=== PATIENT | female | born 1945 | race Caucasian/White ===

== ENCOUNTER → 2024-02-17 10:53 | Outpatient (REF) | payer MEDICARE, OTHER, SELFPAY ==
[2024-02-17 11:42] LABS: Hematocrit 40.9 % (37.0-47.0); Hemoglobin 13.7 g/dL (12.0-16.0); Mean Corp Hgb Conc. 33.5 g/dL (33.0-37.0); Mean Corpuscular Hgb 31.5 pg (27.0-31.0); Mean Platelet Volume 9.5 fL (7.4-10.4); Platelet Count 238 10^3/uL (130-400); Red Blood Cell Count 4.35 10^6/uL (4.20-5.40); Red Cell Dist. Width 13.1 % (11.5-14.5); White Blood Cell Count 5.8 10^3/uL (4.8-10.8)
[2024-02-17 12:11] LABS: Blood Urea Nitrogen 15 mg/dl (7-17); Calcium 9.4 mg/dl (8.4-10.2); Carbon Dioxide 29 mmol/L (22-30); Chloride 96 mmol/L (98-107); Glucose 100 mg/dl (70-99); Potassium 4.6 mmol/L (3.5-5.1); Sodium 135 mmol/L (135-145); eGFR > 60.00
== END ==
LOC: SDSPAT 10:53
PROVIDERS: ATTENDING PHYSICIAN Student in an Organized Health Care Education/Training Program; FAMILY PHYSICIAN Family Medicine
DX: Z01.818 Encounter for other preprocedural examination (principal)
CPT/HCPCS: 36415; 80048; 85027; 93005

== ENCOUNTER 2024-03-02 06:25 | Day surgery (SDC) | payer MEDICARE, OTHER, SELFPAY ==
[2024-02-17 13:48] VITALS: BMI 27.5
[2024-03-02] VITALS (17 sets, daily range): BP systolic 118–149; BP diastolic 53–83; BMI 27.5
[2024-03-02] MEDS: NORMOSOL-R/PLASMALYTE-A 1000 IV ×2 (07:25→15:55)
[2024-03-02] MEDS: TYLENOL 1000 MG PO (07:32)
[2024-03-02] MEDS: CELEBREX 200 MG PO (07:32)
--- NOTE | 2024-03-02 10:00 | VNURNOTE ---
Home Health Liaison spoke with patient's spouse to discuss [facility] nurse/therapy, visits, schedule and homebound status. He is agreeable and understands that visits at home will be 2-3 x per week to assess and teach medical management. [facility] contact
information provided. Spouse is aware that [facility] will contact them for start of care in 1-2 days after discharge from .
[facility] referral completed in [facility].
--- NOTE | 2024-03-02 11:29 | W.PN.SURGUPD ---
Surgical Update
Surgical Update
78 yo F now s/p R subtalar joint arthrodesis
-Multimodal analgesia, received pre-operative nerve block
-NWB to RLE in posterior splint
-PT/OT, will continue PT/OT at home
-Continue ancef 24 hours inpatient
-Anticipate DC to home 03/03
[2024-03-02] MEDS: HEPARIN 5000 UNITS SC (15:57)
[2024-03-02] MEDS: COZAAR 25 MG PO (16:49)
[2024-03-02] MEDS: LEXAPRO 10 MG PO (16:49)
[2024-03-02] MEDS: LOPRESSOR 25 MG PO (20:04)
--- NOTE | 2024-03-02 21:07 | HPS.HSE ---
Family Physician
-
Family Physician: SULEMAN SCOTT, DO
Chief Complaint
-
right foot pain
History of Present Illness
78-year-old female past medical history of hypertension, anxiety/depression, presenting with right foot arch pain for the past few years gradually getting worse. She underwent right subtalar joint arthrodesis today.
She denies any complaints.
Medical History
Past Medical History
Past Medical History: Reports Other ( hypertension, anxiety/depression)
Past Surgical History: Reports None
Social History
Tobacco: Non-smoker
Alcohol: Daily (1 glass )
Drug: None
Family History
Family History: Not pertinent
Allergies / Home Medications
Allergies reflects when Allergies were last updated in [facility].
Home Medications with original date entered in [facility]
Allergy/Medication List:
Allergies
Allergy/AdvReac Type Severity Reaction Status Date / Time
ciprofloxacin Allergy Rash Verified 03/02/24 07:23
codeine Allergy nausea/vomi Verified 03/02/24 07:23
ting
levofloxacin Allergy Rash Verified 03/02/24 07:23
pollen extracts Allergy seasonal Verified 03/02/24 07:23
allergies
Home Medications
Theracran One 1 cap PO DAILY 02/24/24
acetaminophen 500 mg tablet 1,000 mg PO Q6H PRN pain 02/24/24
escitalopram oxalate 10 mg tablet (Lexapro) 10 mg PO .AFTERNOON 02/24/24
losartan 25 mg tablet 25 mg PO .AFTER LUNCH 02/24/24
metoprolol tartrate 25 mg tablet 25 mg PO BID 02/24/24
psyllium 1 packet PO Q48H 02/24/24
zolpidem 10 mg tablet 10 mg PO HS 02/24/24
Review of Systems
-
History Source: Patient
A 12 point ROS was completed and negative except as noted: Yes
Constitutional: Reports No Symptoms
EENT: Reports No Symptoms
Respiratory: Reports No Symptoms
Cardiac: Reports No Symptoms
Abdomen/GI: Reports No Symptoms
: Reports No Symptoms
Musculoskeletal: Reports No Symptoms
Skin: Reports No Symptoms
Neurological: Reports No Symptoms
Endocrine: Reports No Symptoms
Hematologic/Lymphatic: Reports No Symptoms
Psych: Reports No Symptoms
Physical Exam
Vital Signs
Vital Signs
Temp Pulse Resp BP Pulse Ox
97.5 F 86 16 132/70 93
03/02/24 19:30 03/02/24 20:04 03/02/24 19:30 03/02/24 20:04 03/02/24 19:30
Physical Exam
General: Well Developed, Well Nourished and No Apparent Distress
HEENT: NormoCephalic, Moist mucous membranes and Atraumatic
Respiratory: Clear
Cardiac: S1/S2 and Regular Rhythm; No Murmur or Rub
GI: Soft, Non Tender, Non Distended and Normal Bowel Sounds; No Organomegaly
Rectal: Deferred by Provider
Musculoskeletal: No Clubbing, No Cyanosis and No Edema
Skin: No Rash
Neuro: Nonfocal/grossly intact
Data Reviewed
-
Lab Data: Labs Reviewed by me
Old Records: Reviewed
Impression/Plan
-
IMPRESSION:
PLAN:
# Right posterior tibial tendon dysfunction status post right subtalar joint arthrodesis
-Nonweightbearing of right lower extremity in posterior splint, PT/OT,
-Ancef for 24 hours
-Pain control with Tylenol, ibuprofen, oxycodone,
-Can likely be discharged tomorrow
-PT/OT
Essential hypertension
-Continue losartan, metoprolol
Anxiety/depression
-Continue Lexapro
Full code
DVT prophylaxis�heparin, SCDs,
Regular diet
[2024-03-02] MEDS: ANCEF 5 IV (21:37)
[2024-03-02] MEDS: AMBIEN 10 MG PO (21:37)
[2024-03-03] MEDS: HEPARIN 5000 UNITS SC ×3 (01:00→16:52)
[2024-03-03 05:35] LABS: Hemoglobin 12.2 g/dL (12.0-16.0); Mean Corp Hgb Conc. 34.9 g/dL (33.0-37.0); Mean Corpuscular Volume 89.1 fL (81.0-99.0); Mean Platelet Volume 10.5 fL (7.4-10.4); Platelet Count 220 10^3/uL (130-400); Red Blood Cell Count 3.93 10^6/uL (4.20-5.40); Red Cell Dist. Width 13.2 % (11.5-14.5)
[2024-03-03 05:55] LABS: Blood Urea Nitrogen 14 mg/dl (7-17); Calcium 8.3 mg/dl (8.4-10.2); Carbon Dioxide 23 mmol/L (22-30); Chloride 101 mmol/L (98-107); Estimated Creatinine Clearance 60 ml/min; Glucose 108 mg/dl (70-99); Potassium 4.2 mmol/L (3.5-5.1); Sodium 134 mmol/L (135-145); eGFR > 60.00
[2024-03-03] MEDS: ANCEF 5 IV ×2 (06:21→13:00)
[2024-03-03 07:02] VITALS: BP 151/72
[2024-03-03] MEDS: LOPRESSOR 25 MG PO (07:43)
[2024-03-03] MEDS: MOTRIN 600 MG PO ×2 (09:20→16:51)
[2024-03-03 10:55] VITALS: BP 146/64
[2024-03-03] MEDS: NORMOSOL-R/PLASMALYTE-A IV (11:05)
--- NOTE | 2024-03-03 11:21 | CM ---
Met with pt at bedside
Pt reports [facility]; no steps to enter, FF set-up
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
DME - rolling walker, commode, raised toilet seat
SNF - no past hx
HH - has had [place] in past
Has ride at discharge
PCP - Lauri Trivedi
Pharm - [facility]
PT/OT - recs - HH
Discussed with pt - agreeable to HH. Has no preference to agency
TT sent to [facility]ia[facility] for HH needs
Plan - anticipate home with [facility]
[2024-03-03 12:06] VITALS: BP 162/82; PULSE 60; PULSE 61; O2SAT 96
--- NOTE | 2024-03-03 12:30 | W.PN.SURGUPD ---
Surgical Update
Surgical Update
78 yo F s/p R subtalar joint arthrodesis
-Patient seen and evaluated at bedside
-Toe pinks and well perfused, splint C/D/I
-Pain is well controlled
-Anticipate DC home pending PT/OT
-Strict NWB to RLE
-Home pain medications ordered
[2024-03-03] MEDS: LEXAPRO 10 MG PO (13:00)
[2024-03-03 14:55] VITALS: BP 143/63
--- NOTE | 2024-03-03 15:47 | PTCARENOTE ---
Patient and family anxiously awaiting discharge. Family reports oxycodone was called into patient's pharmacy, but patient will not take oxycodone d/t side effects, requesting prescription for tramadol and zofran. Dr. Figueroa updated.
[2024-03-03] MEDS: COZAAR 25 MG PO (16:52)
--- NOTE | 2024-03-03 17:37 | W.DS.TRANS ---
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
-
Discharge Instructions:
Sleep Apnea Risk Low
Discharge Diagnosis/Procedures R subtalar joint arthrodesis
Diet Regular
Activity Do not bear weight R leg
Bathing Restrictions None
Other Services VN
Instructions:
Stand-Alone Forms:
Changes to Home Medications: No
Discharge Medications:
DC Medications w/original date entered in [facility]
Theracran One 1 cap PO DAILY 02/24/24
acetaminophen 500 mg tablet 1,000 mg PO Q6H PRN pain 02/24/24
escitalopram oxalate 10 mg tablet (Lexapro) 10 mg PO .AFTERNOON 02/24/24
losartan 25 mg tablet 25 mg PO .AFTER LUNCH 02/24/24
metoprolol tartrate 25 mg tablet 25 mg PO BID 02/24/24
psyllium 1 packet PO Q48H 02/24/24
zolpidem 10 mg tablet 10 mg PO HS 02/24/24
acetaminophen 325 mg tablet 650 mg (2 x 325 mg) PO Q4HPRN PRN mild pain #100 tabs 03/03/24
ibuprofen 200 mg tablet (Motrin IB) 600 mg (3 x 200 mg) PO Q6H PRN Pain #100 tabs 03/03/24
Home Medication Changes
Pending Results: No
Total time spent discharging patient (in min): 41
--- NOTE | 2024-03-03 17:37 | W.PN.HOSP.TC ---
Today's Communication/Plan
-
dc home/VN
Assessment / Plan
Assessment / Plan
Assessment:
Right posterior tibial tendon dysfunction status post right subtalar joint arthrodesis
- Nonweightbearing of right lower extremity in posterior splint, PT/OT,
- Pain control with Tylenol, ibuprofen
- home/VN discharge
Essential hypertension
- Continue losartan, metoprolol
Anxiety/depression
- Continue Lexapro
More than 30 minutes spent in discharge including
Final examination of the patient
Summarizing hospital stay
Instructions for continuing care to all relevant caregivers
Preparation of discharge records, prescriptions, and referral forms
Total time spent (in minutes):41
Anticipated Discharge: Today
Subjective/Interval History
-
Date of Service: March 03, 2024
no complaints
for dc today
Objective Data
-
Labs:
Laboratory Results
03/03/24
04:48
Sodium 134 L
Potassium 4.2
Chloride 101
Carbon Dioxide 23
BUN 14
Creatinine 0.7
Glucose 108 H
Calcium 8.3 L
Vital Signs:
Vital Signs
Temp Pulse Resp BP Pulse Ox
97.5 F 58 16 143/63 96
03/03/24 14:55 03/03/24 14:55 03/03/24 14:55 03/03/24 14:55 03/03/24 14:55
I&O
03/02/24 03/03/24 03/04/24
06:59 06:59 06:59
Intake Total 1323 / 1323
Output Total 950 / 950
Balance 373 / 373
Physical Exam
-
General: No Apparent Distress
HEENT: Normocephalic and Atraumatic
Respiratory: Negative Wheezes
Cardiac: Regular Rhythm and S1/S2
GI: Soft and Nontender
Genito-urinary: No Costovertebral Tender
Neuro: AO x 3
Psych: Calm
Data Reviewed
-
Total Time Spent with Patient (in minutes): 41
Labs: Labs Reviewed by me
--- NOTE | 2024-03-03 17:52 | PTCARENOTE ---
Dr. Tinoco ([facility]) notified that discharge needs to be ordered by hospitalist per Dr. Figueroa. Dr. Telles on floor to discharge patient.
== END 2024-03-03 17:55 | disposition home health service (06) ==
LOC: SDS 06:25
PROVIDERS: Hospitalist; ATTENDING PHYSICIAN Internal Medicine; FAMILY PHYSICIAN Family Medicine
DX: M21.071 Valgus deformity, not elsewhere classified, right ankle (principal); M21.41 Flat foot [pes planus] (acquired), right foot; M67.01 Short Achilles tendon (acquired), right ankle; M19.071 Primary osteoarthritis, right ankle and foot; M76.821 Posterior tibial tendinitis, right leg
CPT/HCPCS: 28725; 73610; 76000; 80048; 85027; 93005; 97116; 97162; 97166; 97530; 97535; C1713